=== PATIENT | female | born 1960 | race Caucasian/White ===

== ENCOUNTER → 2024-01-31 09:52 | Outpatient (REF) | payer MEDICARE, OTHER, SELFPAY | LOC: WDC 09:52 | PROVIDERS: ATTENDING PHYSICIAN Physician Assistant | DX: N95.9 Unspecified menopausal and perimenopausal disorder (principal); Z12.31 Encounter for screening mammogram for malignant neoplasm of breast | CPT/HCPCS: 77063; 77067; 77080 ==

== ENCOUNTER 2024-04-21 09:58 | Emergency (ER) | payer MEDICARE, OTHER, SELFPAY ==
[2024-04-21 10:17] VITALS: BP 160/86
--- NOTE | 2024-04-21 11:09 | ED.GENMED ---
History of Present Illness
General
Chief Complaint: Cold/Flu/URI Symptoms
Source: patient
Exam Limitations: none
Time Seen by Provider: 04/21/24 10:29
Nursing documentation reviewed up to this point in time: agreed with
History of Present Illness
History of Present Illness:
pt is a 63 y/o F with no sig pmh
here with 2-3 days of uri sxs
nasasl congestion, post nasal drip, sore throat and productive cough
no fever/chills
says naveen sneed she was feeling like she was having mucus aspirating or gtting stuck in her airway causing her some anxiety
doesn't think she had whooping sound
no known exposures to perturssis or covid
nochst pain, shortness of breath currenty
no fever
no home covid test
unvaccinated
Past History
Past History
ED Past Medical History: HTN
ED Past Surgical History: Appendectomy
Social History
Tobacco: Non-smoker
Alcohol: Occasional
Living: with family
Review of Systems
Review of Systems
Allergies reviewed?: Yes
All Other Systems: Not applicable
Phy Exam
Physical Exam
Physical Exam:
GENERAL: Alert , in no apparent distress
EYE: pupils equal and reactive
NECK: Supple
ENT: b/l TM s clear, pharynx mild erythematous but no tonsillar hypertrophy or exudates
CARDIAC: Regular rate and rhythm, no edema
LUNGS: Clear breath sounds bilaterally, no acute respiratory distress, no wheezes/rales/rhonchi, occ cough
ABDOMEN: Soft, without focal tenderness, no r/g, no cvat, normal bowel sounds
NEUROLOGICAL: Alert and oriented, no focal neuro deficits
SKIN: Warm and dry, skin intact.
MUSCULOSKELETAL: No edema, well perfused.
PSYCH: Normal and appropriate interaction.
Course
Orders/Labs/Results
Orders:
Orders
04/21/24 11:05
CR Chest - 2 Views Urgent
Comment:
Reason For Exam: cough
04/21/24 11:26
COVID-19 Antigen Urgent
Source: Nasal Swab
Influenza A+B Rapid Molecular Urgent
[facility]IM[facility] Source: Nasal Swab
Specimen Description:
Respiratory Syncytial Virus Urgent
[facility] Source: Nasal Swab
Specimen Description:
Date Specimen was Collected: 04/21/24
Time Specimen was Collected: 11:21
Abnormal Lab Results
04/21/24
11:26
SARS-CoV-2 Antigen Positive A
(Negative)
Vital Signs
Initial and Last Documented VS:
Initial Vital Signs
Temp Pulse Resp BP Pulse Ox
98.8 F 70 18 160/86 97
04/21/24 10:17 04/21/24 10:17 04/21/24 10:17 04/21/24 10:17 04/21/24 10:17
Last Documented Vital Signs
Temp Pulse Resp BP Pulse Ox
98.8 F 70 18 160/86 97
04/21/24 10:17 04/21/24 10:17 04/21/24 10:17 04/21/24 10:17 04/21/24 10:17
MDM/Problems Addressed
Differential Diagnosis Includes:
uri, viral infection, pna
MDM/Problems Addressed:
63 y/o F with no pmh
here with URI sxs x 2-3 days
had a prtty spastic cough last nght and felt like sh was having trouble breathing for a period of time, it scared her
it resolved
she is here to be checked out
no cp, sob
COVID-positive, clear lungs, x-ray is clear as well independently reviewed by me. RSV and flu are negative. Patient is not hypoxic, she is very well-appearing. She is unvaccinated. She has no medical problems to be concern for severe infection
thus antiviral therapy was not indicated
*Critical Care Note
Total Time (30-74mins, 75-104mins- exclusive of procedures): Not Applicable
ED Attending Note
-
Portions of this chart may have been created with voice recognition software.� Occasional wrong word or��sound alike� substitutions may have occurred due to the inherent limitations of voice recognition software.
Discharge Plan
Departure
Patient Disposition: Home (Routine Discharge)
Date of Disposition: 04/21/24
Time of Disposition: 12:09
Patient with high blood pressure during this ER visit?: No
Condition: Fair
Covid-19: Confirmed COVID-19
Discharge Problem:
COVID-19
Instructions: COVID-19 in adults - Discharge instructions
Prescriptions:
No Action
ondansetron 4 MG tablet,disintegrating
4 mg PO TIDPRN PRN (Reason: nausea/vomiting) Qty: 8 0RF
omeprazole magnesium [Prilosec OTC] 20 MG tablet,delayed release (DR/EC)
20 mg PO BID Qty: 30 0RF
famotidine 20 MG tablet
20 mg PO BID Qty: 28 0RF
Rx Instructions:
Take 20 mg twice a day for 14 days
ascorbic acid (vitamin C) [Vitamin C] 500 MG tablet
1,000 mg PO BID Qty: 56 0RF
Rx Instructions:
Take 1,000 mg twice a day for 14 days
aspirin 81 MG tablet,chewable
81 mg PO DAILY Qty: 14 0RF
Rx Instructions:
Take 81 mg daily for 14 days
zinc sulfate 220 MG capsule
220 mg PO DAILY Qty: 14 0RF
Rx Instructions:
Take 220 mg daily for 14 days
cholecalciferol (vitamin D3) 1,000 UNITS tablet
2,000 units PO DAILY Qty: 28 0RF
Rx Instructions:
Take 2,000 units daily for 14 days
melatonin 5 MG tablet
5 mg PO HS Qty: 14 0RF
Rx Instructions:
Take 5 mg daily at bedtime for 14 days
oxycodone 5 mg tablet
5 mg PO Q4H PRN (Reason: pain) Qty: 14 0RF
amoxicillin-pot clavulanate 875-125 mg tablet
1 tab PO BID Qty: 13 0RF
Referrals:
Rafael Tyler, [Family Provider] - Follow up in 5-7 days
Stand Alone Forms: Return to Work
Activity Restrictions/Additional Instructions:
You tested positive for coronavirus 19. Stay home for period of 5 days. You may return to public after 5 days as long as you are fever free. For cough you can use [id number] cough medications. For fever you can take Tylenol or ibuprofen.
Your chest x-ray was clear and there is no pneumonia. Return for significant shortness of breath, lethargy, confusion, or any concerns.
Interventions
Interventions:
*Risk Screen - Suicide Last Done: 04/21/24 10:17
*General Assessment Last Done: 04/21/24 10:17
*Neglect/Abuse Screening Last Done: 04/21/24 10:17
*ED COVID-19 Vaccine History Last Done: 04/21/24 10:17
*Nursing Disposition Last Done: 04/21/24 12:27
ED- Pulmonary Assessment Last Done: 04/21/24 11:25
Discharge Date and Time
Discharge Date/Time: 04/21/24 12:27
Print Language: BANGLADESHI
[2024-04-21 12:03] LABS: COVID-19 Antigen Positive (Negative)
== END 2024-04-21 12:27 | disposition home or self-care (01) ==
LOC: EMR 09:58
PROVIDERS: Physician Assistant; EMERGENCY PHYSICIAN Student in an Organized Health Care Education/Training Program; FAMILY PHYSICIAN Family Medicine
DX: U07.1 COVID-19 (principal); Z11.52 Encounter for screening for COVID-19; Z28.39 Other underimmunization status; I10 Essential (primary) hypertension; Z79.82 Long term (current) use of aspirin
CPT/HCPCS: 99283; 71046; 87502; 87807; 87811

== ENCOUNTER 2024-08-11 00:34 | Emergency (ER) | payer MEDICARE, OTHER, SELFPAY ==
[2024-08-11 03:32] VITALS: BP 202/92
[2024-08-11 04:00] VITALS: BP 178/118
--- NOTE | 2024-08-11 04:53 | ED.GENMED ---
History of Present Illness
General
Chief Complaint: Skin Surface Trauma
Source: patient
Exam Limitations: none
Time Seen by Provider: 08/11/24 04:39
History of Present Illness
History of Present Illness:
See MDM
Past History
Past History
ED Past Medical History: HTN
ED Past Surgical History: Appendectomy
Social History
Tobacco: Non-smoker
Alcohol: Occasional
Living: with family
Phy Exam
Physical Exam
Physical Exam:
See MDM
Course
Orders/Labs/Results
Orders:
Orders
08/11/24 00:45
Finger(s)/Thumb 2 View Rt [CR Finger(s)/thumb Min 2 Vw Rt] Urgent
Comment:
Reason For Exam: CONCERN FOR GLASS IN FINGER
Indicate Which Finger:: Ring Finger
Vital Signs
Initial and Last Documented VS:
Initial Vital Signs
Temp Pulse Resp Pulse Ox
97.8 F 74 18 98
08/11/24 00:41 08/11/24 00:41 08/11/24 00:41 08/11/24 00:41
Last Documented Vital Signs
Temp Pulse Resp BP Pulse Ox
97.8 F 81 19 178/118 95
08/11/24 00:41 08/11/24 03:36 08/11/24 03:36 08/11/24 04:00 08/11/24 04:15
Procedures
Laceration Closure
Right Middle Dorsal Fourth Finger:
Status of Wound: clean
Size of Wound in cm: 2
Description of Wound Edges: sharp
Preparation: cleaned with Betadine
Anesthesia: 1% Lidocaine
Revision/Debridement: routine- no revision
Wound exploration: explored to base- no FB
Type of Closure: single layer closure
Skin Closure Material: 4-0 nylon
Number of sutures: 2
MDM/Problems Addressed
Differential Diagnosis Includes:
HPI and MDM Narrative:
63-year-old female presenting with laceration to her right index finger. She is right-hand dominant. Patient broke a glass and she put it into the trash. She then pushed the trash down and cut her finger. Patient was more concerned that have a
piece of broken glass in her finger. She denies numbness or tingling. She states tetanus up-to-date. She is already on Augmentin for dental infection
After the laceration was numbed, it was probed and I did not palpate or appreciate any foreign body. X-ray shows no evidence of foreign body as well. The finger is neurovascularly intact and there is no clinical evidence of ligamentous injury
Physical exam
General: Well appearing and non-toxic
HEENT: protecting airway
Neck: appears supple
CV: No evidence of cyanosis
Resp: No accessory muscle use
Abd: Non-distended
Extremities: 2 cm laceration to dorsal aspect of the proximal right ring finger. Distal finger neurovascularly intact. Range of motion intact
Neuro: alert
Psych: Normal affect
Skin: Intact
Problems Addressed including Acute and Chronic Conditions affecting care:
1. Finger laceration
Acuity: acute
Prognosis: stable
Details: No evidence of foreign body on exam or x-ray. 2 sutures placed
Differential Diagnosis (but not limited to): Finger laceration, foreign body
Drug therapy (if applicable): OTC meds, please see d/c instruction regarding Rx drugs
Amount and/or Complexity of Data Reviewed
Clinical info obtained from: Patient
External data reviewed: N/A
Labs I independently reviewed (but not limited to): N/A
Radiology: X-ray independently reviewed: No foreign body noted on finger
Pulse Ox: not hypoxic
EKG independently reviewed: N/A
Fire Control Officer: N/A
Critical Care: N/A
Risk of Complication:
Social Determinants of health: Good social support
Discussed with other providers: N/A
Escalation of Care includes Admit/Obs: After being observed in the Emergency Department, pt stable for discharge.
Occasional wrong word or 'sound a like' substitutions may have occurred due to the inherent limitations of voice recognition software. Read the chart carefully and recognize, using context, where substitutions have occurred.
*Critical Care Note
Total Time (30-74mins, 75-104mins- exclusive of procedures): Not Applicable
ED Attending Note
-
Portions of this chart may have been created with voice recognition software.� Occasional wrong word or��sound alike� substitutions may have occurred due to the inherent limitations of voice recognition software.
Discharge Plan
Departure
Patient Disposition: Home (Routine Discharge)
Date of Disposition: 08/11/24
Time of Disposition: 04:53
Patient with high blood pressure during this ER visit?: Yes
Discharge Problem:
Finger laceration
Instructions: Laceration Repair With Stitches (DC), BLOOD PRESSURE
Prescriptions:
No Action
ondansetron 4 MG tablet,disintegrating
4 mg PO TIDPRN PRN (Reason: nausea/vomiting) Qty: 8 0RF
omeprazole magnesium [Prilosec OTC] 20 MG tablet,delayed release (DR/EC)
20 mg PO BID Qty: 30 0RF
famotidine 20 MG tablet
20 mg PO BID Qty: 28 0RF
Rx Instructions:
Take 20 mg twice a day for 14 days
ascorbic acid (vitamin C) [Vitamin C] 500 MG tablet
1,000 mg PO BID Qty: 56 0RF
Rx Instructions:
Take 1,000 mg twice a day for 14 days
aspirin 81 MG tablet,chewable
81 mg PO DAILY Qty: 14 0RF
Rx Instructions:
Take 81 mg daily for 14 days
zinc sulfate 220 MG capsule
220 mg PO DAILY Qty: 14 0RF
Rx Instructions:
Take 220 mg daily for 14 days
cholecalciferol (vitamin D3) 1,000 UNITS tablet
2,000 units PO DAILY Qty: 28 0RF
Rx Instructions:
Take 2,000 units daily for 14 days
melatonin 5 MG tablet
5 mg PO HS Qty: 14 0RF
Rx Instructions:
Take 5 mg daily at bedtime for 14 days
oxycodone 5 mg tablet
5 mg PO Q4H PRN (Reason: pain) Qty: 14 0RF
amoxicillin-pot clavulanate 875-125 mg tablet
1 tab PO BID Qty: 13 0RF
Activity Restrictions/Additional Instructions:
Keep wound clean and dry, change dressing if it becomes soiled or wet. Watch for signs of infection: fever over 100.5', increasing pain, red streaks around wound, swelling, drainage of pus, or bad smell. If any of these happen, return to ED
promptly. Return to ED or make an appointment with your doctor to have the 2 sutures removed in 7 days. All wounds may scar, however you may reduce the appearance of scarring by avoiding sun exposure to the scar and applying skin moisturizer with
spf protection to the scar once the wound is healed.
Please continue to take the Augmentin
Interventions
Interventions:
*Risk Screen - Suicide Last Done: 08/11/24 00:41
*General Assessment Last Done: 08/11/24 03:29
*Neglect/Abuse Screening Last Done: 08/11/24 00:41
ED- Fall Risk Assessment Last Done: 08/11/24 03:30
*ED COVID-19 Vaccine History Last Done: 08/11/24 03:29
ED-Skin Assessment Last Done: 08/11/24 03:30
Discharge Date and Time
Print Language: CYMRO
== END 2024-08-11 05:08 | disposition home or self-care (01) ==
LOC: EMR 00:34
PROVIDERS: EMERGENCY PHYSICIAN Student in an Organized Health Care Education/Training Program; FAMILY PHYSICIAN Family Medicine
DX: S61.214A Laceration without foreign body of right ring finger without damage to nail, initial encounter (principal); W25.XXXA Contact with sharp glass, initial encounter; I10 Essential (primary) hypertension
CPT/HCPCS: 99283; 12001; 73140

== ENCOUNTER → 2024-08-20 07:35 | Outpatient (REF) | payer MEDICARE, OTHER, SELFPAY | LOC: PAVMRI 07:35 | PROVIDERS: ATTENDING PHYSICIAN Otolaryngology; PRIMARYCARE PHYSICIAN Family Medicine | DX: H90.A21 Sensorineural hearing loss, unilateral, right ear, with restricted hearing on the contralateral side (principal) | CPT/HCPCS: 70553; A9575 ==

== ENCOUNTER 2024-09-25 06:34 | Outpatient (RCR) | payer MEDICARE, OTHER, SELFPAY | END 2024-09-25 23:59 | disposition home or self-care (01) | LOC: RPT 06:34 | PROVIDERS: ATTENDING PHYSICIAN Physician Assistant; FAMILY PHYSICIAN Family Medicine | DX: M77.01 Medial epicondylitis, right elbow (principal); M77.22 Periarthritis, left wrist; Z73.6 Limitation of activities due to disability | CPT/HCPCS: 97110; 97162 ==

== ENCOUNTER 2024-10-28 10:03 | Outpatient (RCR) | payer MEDICARE, OTHER, SELFPAY | END 2024-10-28 23:59 | disposition home or self-care (01) | LOC: RPT 10:03 | PROVIDERS: ATTENDING PHYSICIAN Physician Assistant; FAMILY PHYSICIAN Family Medicine | DX: M77.01 Medial epicondylitis, right elbow (principal); M77.22 Periarthritis, left wrist; Z73.6 Limitation of activities due to disability; M77.02 Medial epicondylitis, left elbow | CPT/HCPCS: 97010; 97110; 97140 ==

== ENCOUNTER 2025-01-17 03:53 | Inpatient (IN) | payer MEDICARE, OTHER, SELFPAY ==
[2025-01-17] VITALS (62 sets, daily range): BP systolic 106–245; BP diastolic 55–119; BMI 27.3
[2025-01-17] MEDS: MORPHINE SULFATE 4 MG IV ×2 (01:21→01:45)
[2025-01-17] MEDS: ZOFRAN 4 MG IV ×2 (01:21→01:45)
--- NOTE | 2025-01-17 01:24 | ED.GENMED ---
History of Present Illness
General
Chief Complaint: Headache
Source: patient and spouse
Time Seen by Provider: 01/17/25 01:15
History of Present Illness
History of Present Illness:
This patient is a 64-year-old female who states that she developed a left-sided headache at approximately 5 or 6 PM tonight that continues and is very severe. This is associated with nausea and vomiting. Just before coming here she felt numbness
and tingling in her right arm. That has since resolved. She denies double vision, change in vision, neck pain, chest pain, shortness of breath, change in speech, dizziness/change in balance, vertigo, abdominal pain, focal weakness, or other
complaints. Patient has never had a headache like this before. It is constant without exacerbating relieving factors.
Past History
Past History
ED Past Medical History: HTN
ED Past Surgical History: Appendectomy
Social History
Tobacco: Non-smoker
Alcohol: Occasional
Drug: None
Personal:
Living: with family
Phy Exam
Physical Exam
Physical Exam:
GENERAL: Alert , actively vomiting, appears to be uncomfortable
EYE: pupils equal and reactive, no photophobia, EOMI
NECK: Supple, no significant adenopathy.
ENT: o/p clr, mmm.
CARDIAC: Regular rate and rhythm .
LUNGS: Clear breath sounds bilaterally, no acute respiratory distress, no wheezes/rales/rhonchi
ABDOMEN: Soft, without focal tenderness, no r/g
NEUROLOGICAL: Alert and oriented, no focal neuro deficits
SKIN: Warm and dry, skin intact.
MUSCULOSKELETAL: No edema, well perfused.
PSYCH: Normal and appropriate interaction.
Course
Orders/Labs/Results
Orders:
Orders
01/17/25 01:18
CT BRAIN PERF STROKE ALERT Urgent
Comment:
Reason For Exam: l sided holland/
CT HEAD STROKE ALERT W/o Cont Urgent
Comment:
Reason For Exam: l sided h/a
CT HEAD/NECK ANG STROKE ALERT Urgent
Comment:
Reason For Exam: l sided holland/ r arm tingling
01/17/25 01:19
Complete Blood Count/With Diff Urgent
Comprehensive Metabolic Panel Urgent
01/17/25 01:20
Morphine Sulfate 4 mg .ROUTE .STK-MED ONE
Ondansetron Injectable [Zofran] 4 mg .ROUTE .STK-MED ONE
01/17/25 01:21
Morphine Sulfate 4 mg IV NOW STA
Ondansetron Injectable [Zofran] 4 mg IV NOW STA
01/17/25 01:43
Morphine Sulfate 4 mg IV NOW STA
Ondansetron Injectable [Zofran] 4 mg IV NOW STA
01/17/25 02:13
Electrocardiogram (*1) Urgent
Reason for Study: TIA/Stroke
EKG- Treatment ONCE
01/17/25 02:39
Troponin I Urgent
01/17/25 02:41
Prochlorperazine [Compazine] 10 mg IV NOW STA
01/17/25 02:43
Labetalol HCl [Trandate] 20 mg .ROUTE .STK-MED ONE
01/17/25 02:44
Labetalol HCl [Trandate] 10 mg IV NOW STA
01/17/25 02:55
Labetalol HCl [Trandate] 20 mg IV NOW STA
01/17/25 03:00
Urinalysis Reflex To Culture Urgent
Date Specimen was Collected: 01/17/25
Time Specimen was Collected: 03:00
Urine Microscopic Reflex Cult Urgent
Urine Culture Urgent
[facility] Source: U
Specimen Description:
Date Specimen was Collected: 01/17/25
Time Specimen was Collected: 03:00
Labetalol HCl [Trandate] 10 mg IV ONCE ONE
01/17/25 03:02
Nicardipine 40 mg/200 ml [Cardene] 40 mg in 200 ml IV NOW
Initial dose in mg/hr, then titrate:: 5
Titrate to keep:: BP < 180/105 mmHg
Titrate by mg/hr:: 2.5 mg/hr
Frequency of titrations (minutes):: 5-15 minutes
Maximum dose in mg/hr:: 15
Begin to taper infusion when:: Remained at goal for 2hrs
Taper by mg/hr:: 2.5 mg/hr
Frequency of taper (minutes) if patient maintains goal:: 15-30 minutes
Taper to off?: Yes
If infusion off & no longer maintaining goal:: Contact Provider
01/17/25 03:37
Admit/Transfer Patient As Directed
Co-Sign Provider:
Level of Care: Inpatient admission
Assign to:: ICU
Physician / Group: Mirza
Diagnosis: Hypertensive emergency
Reason for Hospitalization: Hypertensive emergency
Expected length of stay greater than two midnights?: Yes
ELOS- Estimated Length of Stay in days: 2
I certify the patient meets the requirements for IP care: Yes
Code Status As Directed
Resuscitation Status: Full Code
PRN Pain Medication Management As Directed
May give lesser potent ordered pain med per pt: Yes
preference::
Protocol:: Medication orders for pain may be administered in a
manner that supports deferring to patient preference
when the pt is:
- Requesting an ordered lesser potent pain medication.
Least to most potent pain medications are defined
as: acetaminophen < NSAID < tramadol < opioids
(morphine, oxycodone, hydromorphone).
- Requesting a lesser dose of the same medication IF
ORDERED.
- Requesting a less intrusive route of administration
if both routes are prescribed by the provider (PO <
IV).
01/17/25 04:28
Acetaminophen [Tylenol] 650 mg PO Q4HPRN PRN
Bisacodyl [Dulcolax] 10 mg RECTAL Q68CFPC PRN
Docusate W/Senna [Senokot-S] 1 tablet PO BIDPRN PRN
Ketorolac [Toradol] 10 mg IV Q6HPRN PRN
Nicardipine 40 mg/200 ml [Cardene] 40 mg in 200 ml IV PER PROTOCOL
Currently infusing. Continue current dose and titrate:: Yes
Titrate to keep:: BP < 180/105 mmHg
Titrate by mg/hr:: 2.5 mg/hr
Frequency of titrations (minutes):: 5-15 minutes
Maximum dose in mg/hr:: 15
Begin to taper infusion when:: Remained at goal for 2hrs
Taper by mg/hr:: 2.5 mg/hr
Frequency of taper (minutes) if patient maintains goal:: every 15-30 minutes
Taper to off?: Yes
If infusion off & no longer maintaining goal:: Contact Provider
Ondansetron Injectable [Zofran] 4 mg IV Q6HPRN PRN
Polyethylene Glycol Powder [Miralax] 17 grams PO DAILYPRN PRN
01/17/25 04:28
Activity As Directed
Activity Level: With Assistance
Neurological Checks As Directed
Frequency: q4h
Pneumatic Compression Sleeves As Directed
Type: Knee high
Vital Signs As Directed
Frequency: Per unit guidelines
Pulse Ox/spot Check [RESP] Routine
Quantity: 1
DX Deep Vein Thrombosis Video Routine
01/17/25 05:08
Complete Blood Count/No Diff IN AM
NT-proBNP IN AM
01/17/25 Breakfast
Sodium, 2 Gram
At Your Request: Full Participation
Does patient need a safe tray?: No
Abnormal Lab Results
01/17/25 01/17/25
01:19 03:00
RDW 14.7 H %
(11.5-14.5)
Glucose 131 H mg/dl
(70-99)
Calcium 10.3 H mg/dl
(8.4-10.2)
AST 52 H U/L
(14-36)
ALT 39 H U/L
(0-35)
Albumin 5.1 H g/dl
(3.5-5.0)
Urine RBC 3-6 A /HPF
(0-2)
Urine Bacteria (Reflex) Moderate A
(Negative)
Urine Albumin (Reflex) 2+ A
(Neg - Trace)
01/17/25 01:19
01/17/25 01:19
Vital Signs
Initial and Last Documented VS:
Initial Vital Signs
Temp Pulse Resp BP
98.1 F 90 26 205/119
01/17/25 01:09 01/17/25 01:09 01/17/25 01:09 01/17/25 01:09
Last Documented Vital Signs
Temp Pulse Resp BP Pulse Ox
98.3 F 80 22 120/75 96
01/17/25 11:00 01/17/25 12:00 01/17/25 12:00 01/17/25 12:00 01/17/25 12:00
*Critical Care Note
Total Time (30-74mins, 75-104mins- exclusive of procedures): 37
Update Note
Update Note:
Patient presents to the Emergency Department with __headache and vomiting
Number and Complexity of Problems Addressed at the Encounter
� Chronic conditions affecting care:
� Acute Exacerbation and/or Progression of Chronic Illness:
� Differential Diagnosis includes: But not limited to subarachnoid hemorrhage, hemorrhagic stroke, migraine, etc. etc.
Amount and/or Complexity of Data to be Reviewed and Analyzed
� I performed an independent evaluation of and my interpretation is:
EKG:read by me, nsr, lafb, no ischemia noted
CT: CTA/CTP/noncont ct. --vision verbal report nad
Xrays:
Laboratory Studies:generally unremkarable.
Other:
� Review of other/old records reveals:
� Clinical information was obtained by an independent historian: Spouse/domestic partner who is at bedside
� Prescriptions/Medications Considered but not given:
� Further testing considered but not performed:
Risk of Complications and/or Morbidity or Mortality of Patient Management
� Social determinants of health affecting care:
� Discussion with other providers (PCP, Hospitalists, Consultants, etc):
� Escalation of care including admission/observation vs risk of discharge considered: Patient's NIH is 0 at this time however given symptoms that were also associated with numbness tingling stroke alert was called and she is at
CAT scan at this time.
226am Pt with markedly elevated bp...neuro exam wnl, still with h/a and n but gradually improving. NIH remains 0. ecg unremkarable, no cp. No signs ed organ damage, however pt symptomatic with suspected hypertensive urgnecy. Will gradually lower
bp, lopressor times one ordered, monitor closely, admit. D/w hospitalsit Dr Mahan via tt.
243am Bp still elevated. Pt with nausea, no lnoger vomiting. Abd soft and nontender. Repeat dose of labetalol, add compazine.
3:04 AM will transition to a nicardipine drip with a goal systolic blood pressure approximately 175. This was discussed with the nurse. Hospitalist is aware of patient and will continue management. Patient is no longer vomiting and feels that the
nausea is improving as is the headache although not fully resolved. Again, no physical complaints besides headache which is improving. No back pain, abdominal pain, neck pain, etc. to suggest dissection, etc. etc.
ED Attending Note
-
Portions of this chart may have been created with voice recognition software.� Occasional wrong word or��sound alike� substitutions may have occurred due to the inherent limitations of voice recognition software.
Discharge Plan
Departure
Patient Disposition: Admit
Date of Disposition: 01/17/25
Time of Disposition: 02:28
Presentation/result/management discussed w/ accepting MD/DO: Hospitalist
Condition: Fair
Discharge Problem:
Headache
Interventions
Interventions:
*Risk Screen - Suicide Last Done: 01/17/25 01:09
*General Assessment Last Done: 01/17/25 01:09
*Neglect/Abuse Screening Last Done: 01/17/25 01:09
*ED- Fall Risk Assessment Last Done: 01/17/25 01:09
*ED COVID-19 Vaccine History Last Done: 01/17/25 01:09
*Nursing Disposition Last Done: 01/17/25 04:25
ED- Neurological Assessment Last Done: 01/17/25 01:52
Discharge Date and Time
Discharge Date/Time: 01/17/25 04:25
[2025-01-17 01:31] LABS: % Basophils 0.7 % (0-2); % Eosinophils 1.5 % (0-6); % Immature Granulocytes 0.3 % (0-0.5); % Lymphocytes 47.6 % (20.5-51.1); % Monocytes 7.6 % (1.7-9.3); % Neutrophils 42.3 % (42.2-75.2); Absolute Basophils 0.1 10^3/uL (0-0.2); Absolute Eosinophils 0.1 10^3/uL (0-0.7); Absolute Lymphocytes 3.3 10^3/uL (1.2-3.4); Absolute Monocytes 0.5 10^3/uL (0.1-0.6); Absolute Neutrophils 2.9 10^3/uL (1.4-6.5); Hematocrit 43.2 % (37.0-47.0); Hemoglobin 15.5 g/dL (12.0-16.0); Mean Corp Hgb Conc. 35.9 g/dL (33.0-37.0); Mean Corpuscular Hgb 30.5 pg (27.0-31.0); Mean Platelet Volume 9.8 fL (7.4-10.4); Nucleated Red Blood Cells % 0 %; Platelet Count 294 10^3/uL (130-400); Red Blood Cell Count 5.08 10^6/uL (4.20-5.40); Red Cell Dist. Width 14.7 % (11.5-14.5); White Blood Cell Count 6.9 10^3/uL (4.8-10.8)
[2025-01-17 01:56] LABS: ALT (SGPT) 39 U/L (0-35); AST (SGOT) 52 U/L (14-36); Albumin 5.1 g/dl (3.5-5.0); Alkaline Phosphatase 72 U/L (38-126); Blood Urea Nitrogen 16 mg/dl (7-17); Calcium 10.3 mg/dl (8.4-10.2); Carbon Dioxide 23 mmol/L (22-30); Chloride 107 mmol/L (98-107); Glucose 131 mg/dl (70-99); Potassium 4.1 mmol/L (3.5-5.1); Sodium 142 mmol/L (135-145); Total Bilirubin 0.8 mg/dl (0.2-1.3); Total Protein 8.2 g/dl (6.3-8.2); eGFR > 60.00
[2025-01-17] MEDS: TRANDATE 10 MG IV ×2 (02:11→02:46)
[2025-01-17] MEDS: COMPAZINE 10 MG IV (02:44)
[2025-01-17] MEDS: TRANDATE 20 MG IV (02:58)
[2025-01-17] MEDS: CARDENE 200 IV (03:08)
[2025-01-17 03:13] LABS: Urine Albumin 2+ (Neg - Trace); Urine Bilirubin Negative (Negative); Urine Color Straw; Urine Glucose Negative (Negative); Urine Ketone Negative (Negative); Urine Leukocyte Negative (Negative); Urine Nitrite Negative (Negative); Urine Occult Blood Negative (Negative); Urine Specific Gravity 1.015 (<1.030); Urine Urobilinogen Negative (Neg - 1+)
[2025-01-17 03:14] LABS: Urine Character Clear (Clear)
[2025-01-17 03:21] LABS: Troponin I < 0.012 ng/ml
--- NOTE | 2025-01-17 03:30 | HPS.HSE ---
Family Physician
-
Family Physician: Rafael Tyler DO
Chief Complaint
-
Headache
History of Present Illness
This is a 58-year-old female reports history of hypertension which is controlled with lifestyle modification presenting to the emergency department with acute episode of headache x 1 day.
Patient reported that headache began in the evening after work. She reported that it is a central and was initially tolerable. She took ibuprofen. She went to sleep and then she arose from sleep with a pounding severe headache. She denies any
double vision. She denies blurry vision. She denies any numbness tingling, weakness or any other focal logical deficits.
Patient reports that she is never had uncontrolled headache in the past and always had good blood pressures with diet control. She reports she has never been on antihypertensives.
She denies any tobacco use, she denies any chronic NSAID or acetaminophen use. Patient denies any recreational drug use. She denies any stimulants. She denies any environmental changes.
Patient denies any palpitations.
In the emergency department she was hypertensive to 240 systolic. Pulse was in the 80s. She was afebrile and she was satting 97% on room air.
ECG shows normal sinus rhythm with rate of 83 and left anterior fascicular block. No LVH.
CT of the head shows no acute interval changes. CT angio is negative for aneurysm, dissection. There is no intracranial bleed. There is no intracranial mass. There is no edema.
Medical History
Past Medical History
Past Medical History: Reports HTN
Past Surgical History: Reports None
Social History
Tobacco: Non-smoker
Alcohol: Occasional
Drug: None
Personal: Partner
Employment: Employed
Family History
Family History: Not pertinent
Allergies / Home Medications
Allergies reflects when Allergies were last updated in [employer].
Home Medications with original date entered in [employer]
Allergy/Medication List:
Allergies
Allergy/AdvReac Type Severity Reaction Status Date / Time
No Known Allergies Allergy Verified 01/17/25 01:08
Home Medications
No current home medication
Review of Systems
-
Constitutional: Reports No Symptoms
EENT: Reports No Symptoms
Respiratory: Reports No Symptoms
Cardiac: Reports No Symptoms
Abdomen/GI: Reports No Symptoms
: Reports No Symptoms
Musculoskeletal: Reports No Symptoms
Skin: Reports No Symptoms
Neurological: Reports Headache
Endocrine: Reports No Symptoms
Hematologic/Lymphatic: Reports No Symptoms
Psych: Reports No Symptoms
Physical Exam
Vital Signs
Vital Signs
Temp Pulse Resp BP Pulse Ox
98.1 F 83 15 188/82 95
01/17/25 01:09 01/17/25 03:15 01/17/25 03:15 01/17/25 03:15 01/17/25 03:10
Physical Exam
General: Well Developed, Well Nourished and No Apparent Distress
HEENT: NormoCephalic, Moist mucous membranes and Atraumatic
Respiratory: Clear
Cardiac: S1/S2 and Regular Rhythm; No Murmur or Rub
GI: Soft, Non Tender, Non Distended and Normal Bowel Sounds; No Organomegaly
Rectal: Deferred by Provider
Musculoskeletal: No Clubbing, No Cyanosis and No Edema
Skin: No Rash
Neuro: Nonfocal/grossly intact
Laboratory Results
-
01/17/25 01:19
01/17/25 01:19
Laboratory Results
Total Bilirubin 0.8 mg/dl (0.2-1.3) 01/17/25 01:19
AST 52 U/L (14-36) H 01/17/25 01:19
ALT 39 U/L (0-35) H 01/17/25 01:19
Alkaline Phosphatase 72 U/L (38-126) 01/17/25 01:19
Troponin I < 0.012 ng/ml 01/17/25 02:39
Data Reviewed
-
CT Scan: Report Reviewed by me
Medical Tests (Nuc Med, Echo, EKG etc): Image Personally Visualized and interpreted
Lab Data: Labs Reviewed by me
Old Records: Reviewed
Impression/Plan
-
IMPRESSION:
64-year-old female with acute onset of headache that woke her from sleep. She arrived in the emergency department with hypertensive emergency. CT of the head as well as CT angio of the head and neck was negative for any acute changes, no
dissection aneurysm or bleed noted. Patient blood pressure was brought down and distracted with improvement denies headache symptoms. She has no focal neurological deficits. ECG is nonischemic and troponin was negative. Labs did not show any
significant findings that would suggest chronic uncontrolled hypertension or secondary hypertension.
PLAN:
Hypertensive emergency
-Admit to ICU
-Nicardipine drip for now, goal blood pressure less than 180 systolic over the for 6 hours and then titrate down from there
-Neurochecks Q6
-Will hold off oral antihypertensives for now
-Labs do not suggest secondary hypertension from RAAS activation or primary aldosteronism. Given no prior history unlikely vascular hypertension such as coarctation. Cannot rule out feel
-Consider nephrology consult and possible w/u with iman, PRA, metanephrines/renal duplex u/s in a.m.
-UDS
-Consider nephrology consultation
DVT prophylaxis�SCDs for now pending BP control
CODE STATUS�full code
[2025-01-17 03:44] LABS: Urine Amorphous Seen; Urine Squamous Cell >30 /LPF (Few)
[2025-01-17 03:47] LABS: Urine Bacteria Moderate (Negative)
[2025-01-17 04:38] LABS: Glucose - Point of Care 136 mg/dl (70-99)
--- NOTE | 2025-01-17 05:22 | PTCARENOTE ---
Patient received in room 3364 at ~0418 via stretcher. The Patient transferred herself to ICU bed with minimal assistance. Patient received on Cardene gtt at 5 mg/hr (25 ml/hr). Plan of care for the remainder of the shift reviewed with the patient.
Sinus rhythm on the monitor. BP 183/82, 163/74. No edema. + pulses. Clear breath sounds. SpO2 at 94% on room air. Abdomen is round. No difficulty with swallowing. The patient voided 350 cc yellow urine with sediments. Bilateral knee pneumatic
sleeves placed. Labs drawn and sent. All needs are met at this time. Call lake an d personal are within Reach
[2025-01-17 05:29] LABS: Hematocrit 41.7 % (37.0-47.0); Hemoglobin 14.6 g/dL (12.0-16.0); Mean Corpuscular Hgb 30.2 pg (27.0-31.0); Mean Corpuscular Volume 86.3 fL (81.0-99.0); Mean Platelet Volume 9.9 fL (7.4-10.4); Platelet Count 251 10^3/uL (130-400); Red Blood Cell Count 4.83 10^6/uL (4.20-5.40); Red Cell Dist. Width 14.8 % (11.5-14.5); White Blood Cell Count 9.8 10^3/uL (4.8-10.8)
[2025-01-17 05:36] LABS: INR 0.95
[2025-01-17 05:37] LABS: APTT 22.7 Sec (23.4-35.0)
[2025-01-17 05:59] LABS: NT-proBNP 713 pg/ml
--- NOTE | 2025-01-17 06:56 | PTCARENOTE ---
0630: Cardene gtt placed on hold. BP 138/66
[2025-01-17 07:07] LABS: Blood Urea Nitrogen 13 mg/dl (7-17); Calcium 9.8 mg/dl (8.4-10.2); Carbon Dioxide 25 mmol/L (22-30); Chloride 104 mmol/L (98-107); Estimated Creatinine Clearance 74 ml/min; Glucose 131 mg/dl (70-99); Magnesium 1.4 mg/dl (1.6-2.3); Phosphorus 4.1 mg/dl (2.5-4.5); Potassium 4.4 mmol/L (3.5-5.1); Sodium 141 mmol/L (135-145); eGFR > 60.00
--- NOTE | 2025-01-17 08:34 | PTCARENOTE ---
Complete assessment done, Pt pleasant, very tired, oriented x3, no headache at this time. HR SR, BP 127/60 presently. Cardene drip on hold. Lobes clear bilat on R/A. Pt 'not hungry', encouraged to call for breakfast, house phone and menu at her
side. Pt wanting to go back to sleep for a little, since she didn't get much sleep overnight. Pt made comfotable, Call lake at pt's side.
--- NOTE | 2025-01-17 10:08 | W.PN.HOSP.TC ---
Today's Communication/Plan
-
HTN meds
Assessment / Plan
Assessment / Plan
Physical exam:
General: Well Developed, Well Nourished and No Apparent Distress
HEENT: Normocephalic, Atraumatic and Moist Mucous Membranes
Respiratory: Clear to Auscultation; Negative Wheezes, Rales or Rhonchi
Cardiac: Regular Rhythm and S1/S2
GI: Soft, Nontender and Nondistended
Musculoskeletal: No Clubbing, No Cyanosis and No Edema
Neuro: Awake, Alert and Oriented, no neurodeficits
Psych: Calm
A/P:
Hypertensive urgency (ruled out hypertensive emergency):
Off Cardene drip
Start losartan
May use HCTZ if needed
Obtain echocardiogram
Can transfer out of ICU
I do not see any need for secondary hypertension workup
Monitor for 24 hours and if blood pressure stable can be discharged tomorrow
DVT prophylaxis�SCDs
CODE STATUS�full code
Anticipated Discharge: Within 24 hours
Subjective/Interval History
-
Date of Service: January 17, 2025
Patient feels better today. No headache. No chest pain or shortness of breath
Objective Data
-
Labs:
Laboratory Results
01/17/25 01/17/25 01/17/25
01:19 05:07 05:08
WBC 6.9 9.8
Hgb 15.5 14.6
Hct 43.2 41.7
Plt Count 294 251
PT 13.0
INR 0.95
APTT 22.7 L
Sodium 142 Cancelled
Potassium 4.1 Cancelled
Chloride 107 Cancelled
Carbon Dioxide 23 Cancelled
BUN 16 Cancelled
Creatinine 0.8 Cancelled
Glucose 131 H Cancelled
Calcium 10.3 H Cancelled
Total Bilirubin 0.8
AST 52 H
ALT 39 H
Alkaline Phosphatase 72
01/17/25
06:24
WBC
Hgb
Hct
Plt Count
PT
INR
APTT
Sodium 141
Potassium 4.4
Chloride 104
Carbon Dioxide 25
BUN 13
Creatinine 0.7
Glucose 131 H
Calcium 9.8
Total Bilirubin
AST
ALT
Alkaline Phosphatase
Vital Signs:
Vital Signs
Temp Pulse Resp BP Pulse Ox
98.6 F 72 15 136/61 93
01/17/25 07:11 01/17/25 07:30 01/17/25 07:30 01/17/25 07:30 01/17/25 07:45
I&O
01/16/25 01/17/25 01/18/25
06:59 06:59 06:59
Intake Total 75 / 75 100 / 100
Output Total 350 / 350
Balance -275 / -275 100 / 100
--- NOTE | 2025-01-17 10:56 | CON.INTV ---
Consultation
Consultation Request
Date/Time Consultation Requested: 01/17/2025
Date/Time Consultation Performed: 01/17/2025
Requesting Provider: Dr. Blue
Performing Provider: Dr. Rocky Barrett
Reason for Consultation: Hypertensive urgency
Medical History
-
History of Present Illness:
58-year-old woman with history of hypertension initially controlled with lifestyle in the past she has been prescribed medications but she never took them. Came to the hospital with acute episode of severe headache for 1 day.
Headache started while she was at work. She took Motrin without success.
Denies, nausea, vomiting, blurry vision. Denies weakness.
Denies back pain or abdominal pain.
Denies dark urine.
She is a never smoker.
Denies any illegal drug use
Does not drink alcohol in excess.
She was found to be severely hypertensive 240/80. Not hypoxemic
EKG nonischemic.
CT of the head without any abnormalities
Transferred to the critical care unit for IV antihypertensive
Past Medical History
Past Medical History: Other (See assessment and plan)
Social History
Tobacco: Non-smoker (Never)
Alcohol: Occasional
Drug: None
Personal: Partner
Employment: Employed
Family History
Family History: Reviewed & Not Pertinent
Allergies / Home Medications
Allergies
Allergy/AdvReac Type Severity Reaction Status Date / Time
No Known Allergies Allergy Verified 01/17/25 01:08
Home Medications
�Medication �Instructions �Recorded �Confirmed �Last Taken �Type
ondansetron 4 mg disintegrating 4 mg PO TIDPRN PRN nausea/vomiting 07/06/20 Unknown Rx
tablet #8 tabs
omeprazole magnesium 20 mg 20 mg PO BID ##30 02/12/21 Unknown Rx
tablet,delayed release (Prilosec
OTC)
ascorbic acid (vitamin C) 500 mg 1,000 mg (2 x 500 mg) PO BID #56 06/10/21 Unknown Rx
tablet (Vitamin C) tabs
aspirin 81 mg chewable tablet 81 mg PO DAILY #14 tabs 06/10/21 Unknown Rx
cholecalciferol (vitamin D3) 25 2,000 units PO DAILY #28 tabs 06/10/21 Unknown Rx
mcg (1,000 unit) tablet
famotidine 20 mg tablet 20 mg PO BID #28 tabs 06/10/21 Unknown Rx
melatonin 5 mg tablet 5 mg PO HS #14 tabs 06/10/21 Unknown Rx
zinc sulfate 50 mg zinc (220 mg) 220 mg (4.4 x 50 mg zinc (220 mg)) 06/10/21 Unknown Rx
capsule PO DAILY #14 caps
oxycodone 5 mg tablet 5 mg PO Q4H PRN pain #14 tabs 04/13/22 Unknown Rx
amoxicillin 875 mg-potassium 1 tab PO BID #13 tabs 06/05/23 Unknown Rx
clavulanate 125 mg tablet
Review of Systems
-
History Source: Patient
All other systems: Negative unless noted
Vitals / Labs / Diagnostic Testing
Vital Signs
Temp Pulse Resp BP Pulse Ox
98.6 F 72 15 136/61 93
01/17/25 07:11 01/17/25 07:30 01/17/25 07:30 01/17/25 07:30 01/17/25 07:45
Lab Data
01/17/25 05:08
01/17/25 06:24
Laboratory Results
01/17/25
05:07
PT 13.0
INR 0.95
APTT 22.7 L
Diagnostic Testing:
Physical Exam
-
HEENT: Normocephalic
Cardiovascular: S1/S2
Respiratory: Non-Labored Respirations
GI: Soft and Non Distended
Neurology: Awake, Oriented, AO x 3 and No Motor Deficits
Skin: Warm
General: Comfortable
Assessment
-
64-year-old woman admitted to the hospital with severe headache. Found to be significantly hypertensive. Admitted to the critical care unit for IV antihypertensive.
Hypertensive urgency
Normal CT head/CT cervical spine also negative.
Chest x-ray: Without widened mediastinum or pulmonary edema
Normal renal function
No evidence for anemia
Normal proBNP/negative cardiac enzymes
History of hypertension-diet controlled
-
Conditions present prior admission:
History of migraines
GERD
Plan/recommendations.
Clinically improved since overnight.
Nicardipine drip has been discontinued
At this point no evidence for target organ damage.
Headache mostly resolved
Now mostly asymptomatic.
-
Start losartan-defer titration to primary team.
Discussed with Dr. Shaffer.
-
Increase activity as able
Advance diet
-
Patient denies history of snoring or symptoms suggestive of obstructive sleep apnea
-
DVT prophylaxis with SCDs for now.
-
Transfer to telemetry. Critical care team will sign off.
[2025-01-17] MEDS: COZAAR 25 MG PO ×2 (11:59→17:38)
--- NOTE | 2025-01-17 12:10 | PTCARENOTE ---
Pt seen by Dr Callahan and ICU food analyst. BP's reviewed, pt started on losartan 25 mg po today, Pt's BP presently 120/75. Pt to bathroom, stable on feet, washed self and brushed teeth, now in chair eating lunch. Pt cleared to go to a tele room when
available.
--- NOTE | 2025-01-17 16:32 | PTCARENOTE ---
Pt transferred via wheelchair to rm [id number]. All belongings and tele monitor with pt. Report given to Brigette CROFT, who will be caring for pt in new area.
[2025-01-17] MEDS: ORETIC 12.5 MG PO (17:38)
--- NOTE | 2025-01-17 19:24 | PTCARENOTE ---
Rec'd pt from ICU, blood pressure 144/67 heart rate 72. Of concern to pt, reached out to Windy Shaffer MD, placed orders and medication provided. Will reassess with 1900 vital signs. Pt call lake placed within reach, pt instructed to ring for assistance,
verbalized understanding. Pt placed on tele running nsr. Pt skin is intact. will cont to monitor.
[2025-01-17] MEDS: MAG-TAB SR 84 MG PO (20:19)
[2025-01-18 03:40] VITALS: BP 152/74
[2025-01-18 07:08] VITALS: BP 134/65
[2025-01-18] MEDS: COZAAR 50 MG PO (08:35)
[2025-01-18] MEDS: ORETIC 12.5 MG PO (08:35)
[2025-01-18] MEDS: MAG-TAB SR 84 MG PO (08:36)
[2025-01-18 09:40] LABS: Blood Urea Nitrogen 18 mg/dl (7-17); Calcium 9.7 mg/dl (8.4-10.2); Carbon Dioxide 26 mmol/L (22-30); Chloride 103 mmol/L (98-107); Estimated Creatinine Clearance 58 ml/min; Glucose 108 mg/dl (70-99); Sodium 138 mmol/L (135-145); eGFR > 60.00
[2025-01-18 11:36] VITALS: BP 132/57
--- NOTE | 2025-01-18 11:37 | W.PN.HOSP.TC ---
Today's Communication/Plan
-
Discharge planning today
Assessment / Plan
Assessment / Plan
Physical exam:
General: Well Developed, Well Nourished and No Apparent Distress
HEENT: Normocephalic, Atraumatic and Moist Mucous Membranes
Respiratory: Clear to Auscultation; Negative Wheezes, Rales or Rhonchi
Cardiac: Regular Rhythm and S1/S2
GI: Soft, Nontender and Nondistended
Musculoskeletal: No Clubbing, No Cyanosis and No Edema
Neuro: Awake, Alert and Oriented, no neurodeficits
Psych: Calm
A/P:
Hypertensive urgency (ruled out hypertensive emergency):
Resolved
Off Cardene drip
Echocardiogram reviewed
Losartan 50 mg and HCTZ 12.5 mg
Discharge planning today
DVT prophylaxis�SCDs
CODE STATUS�full code
Anticipated Discharge: Today
Subjective/Interval History
-
Date of Service: January 18, 2025
No new complaints. Blood pressure stable
Objective Data
-
Labs:
Laboratory Results
01/18/25
08:34
Sodium 138
Potassium 4.0
Chloride 103
Carbon Dioxide 26
BUN 18 H
Creatinine 0.9
Glucose 108 H
Calcium 9.7
Vital Signs:
Vital Signs
Temp Pulse Resp BP Pulse Ox
97.6 F 63 16 132/57 94
01/18/25 11:36 01/18/25 11:36 01/18/25 11:36 01/18/25 11:36 01/18/25 11:36
I&O
01/17/25 01/18/25 01/19/25
06:59 06:59 06:59
Intake Total 75 / 75 1100 / 1100
Output Total 350 / 350 700 / 700
Balance -275 / -275 400 / 400
--- NOTE | 2025-01-18 12:10 | PTCARENOTE ---
Assumed care of pt from previous nurse. pt is on tele running nsr. pt blood pressure 132/57 heart rate 63. call lake is within reach, pt denies pain. will continue to monitor.
--- NOTE | 2025-01-18 12:55 | CM ---
Patient for d/c today. Seen patient bedside, initial assessment completed. Patient is a 58-year-old female reports history of hypertension which is controlled with lifestyle modification presenting to the emergency department with acute episode of
headache.
Patient resides alone primarily in a 2STH, no steps. Patient's boyfriend stays with her sometimes. Independent w/ amb and ADLs, no DME. Denies SNF/HC hx. Patient drives. OP therapy at [facility] center in the past.
Address, point of contact and insurance verified
PCP: Rafael Tyler
Pharmacy: [facility] [place]
IMM verbally reviewed, copy provided, copy on chart
Plan: Home today, no needs
--- NOTE | 2025-01-18 13:09 | PTCARENOTE ---
Pt discharged to home, paperwork reviewed, signed, pt copy provided. Pt iv and tele removed. pt left with via wheelchair to his vehicle.
--- NOTE | 2025-01-18 13:59 | W.DCSUMMARY ---
Discharge Summary
Discharge Data
Date of Admission: 01/17/25
Date of Discharge: 01/18/25
-
Pending Results: No
Hospital Course
Patient 64-year-old female with history of hypertension came into the hospital with hypertensive urgency. Patient was trying to achieve blood pressure control with lifestyle changes modification but came in with significant headache and significant
elevated blood pressure and she had to be started on Cardene drip to have blood pressure under control. Subsequently she was switched to oral losartan and hydrochlorothiazide and that has achieved better control of her blood pressure. She had an
echocardiogram with EF 70% and moderate concentric LVH and stage I diastolic dysfunction. Patient is doing well and she feels back to her baseline. She will be discharged in stable condition today.
Discharge Plan
-
Patient Disposition: Home (Routine Discharge)
Discharge Diagnosis/Procedures: Hypertensive urgency
Condition: Fair
Diet: Low Cholesterol and Low Sodium
Activity: As tolerated
Blood Work: Please PCP to order CBC, BMP within 1 week
Referrals:
Rafael Tyler DO [Family Provider, Family Practice] - in less than 1 week
Prescriptions:
New
hydrochlorothiazide 12.5 mg Tablet
12.5 mg PO DAILY Qty: 30 0RF
losartan 50 mg Tablet
50 mg PO DAILY Qty: 30 0RF
Continued
omeprazole magnesium [Prilosec OTC] 20 MG tablet,delayed release (DR/EC)
20 mg PO BID Qty: 30 0RF
levothyroxine 25 mcg Tablet
25 mcg PO DAILY
Discontinued
losartan 25 mg Tablet
25 mg PO DAILY
diclofenac sodium 75 mg Tablet,Delayed Release (Dr/Ec)
75 mg PO BID PRN (Reason: pain)
Discharge Orders:
Discharge Patient (As Directed); Ordered 01/18/25
Ordered By: Surinder Shaffer
Discharge Date and Time
Discharge Date/Time: 01/18/25 13:23
Print Language: PORTUGUESE
== END 2025-01-18 13:23 | disposition home or self-care (01) | DRG 305 ==
LOC: 4 WEST ACU 03:53
PROVIDERS: Nurse Practitioner Primary Care; ADMITTING PHYSICIAN Internal Medicine; ATTENDING PHYSICIAN Hospitalist; EMERGENCY PHYSICIAN Emergency Medicine; FAMILY PHYSICIAN Family Medicine; OTHER PHYSICIAN Internal Medicine Critical Care Medicine
DX: I16.0 Hypertensive urgency (principal); I10 Essential (primary) hypertension; I44.4 Left anterior fascicular block; K21.9 Gastro-esophageal reflux disease without esophagitis; Z79.890 Hormone replacement therapy
CPT/HCPCS: 0042T; 70450; 70496; 70498; 71045; 80048; 80053; 81003; 81015; 82962; 83735; 83880; 84100; 84484; 85025; 85027; 85610; 85730; 87086; 93005; 93306; 96374; 96375; 96376; 99291; Q9967

== ENCOUNTER → 2025-02-26 14:06 | Outpatient (REF) | payer MEDICARE, OTHER, SELFPAY | LOC: WDC 14:06 | PROVIDERS: ATTENDING PHYSICIAN Family Medicine | DX: Z12.31 Encounter for screening mammogram for malignant neoplasm of breast (principal) | CPT/HCPCS: 77063; 77067 ==

== ENCOUNTER → 2025-02-27 09:49 | Outpatient (REF) | payer MEDICARE, OTHER, SELFPAY | LOC: RAD 09:49 | PROVIDERS: ATTENDING PHYSICIAN Family Medicine | DX: M25.551 Pain in right hip (principal); M25.552 Pain in left hip | CPT/HCPCS: 73523 ==

== ENCOUNTER 2025-04-26 14:47 | Emergency (ER) | payer MEDICARE, OTHER, SELFPAY ==
[2025-04-26 14:49] VITALS: BP 174/74
--- NOTE | 2025-04-26 15:42 | ED.MUSCINJ ---
HPI-Injury
General
Chief Complaint: Musculo-Skeletal Complaint
Source: patient
Exam Limitations: none
Time Seen by Provider: 04/26/25 14:56
Nursing documentation reviewed up to this point in time: agreed with
History of Present Illness-Injury
Initial Injury comments:
64-year-old female with history of HTN, hypothyroid presents with left foot pain. Pain started the evening after she was cleaning out a storage area and walking for long periods on uneven surfaces. The pain has gradually gotten worse where now it
is significant even at rest. The pain is on the top of her foot and wraps around the ankle.
Past History
Past History
ED Past Medical History: HTN and Hypothyroidism
ED Past Surgical History: Appendectomy
Social History
Tobacco: Non-smoker
Alcohol: Occasional
Drug: None
Personal:
Living: with family
Employment: Not employed
Review of Systems
Review of Systems
Allergies reviewed?: Yes
All Other Systems: ROS reviewed and negative except as documented in HPI and ROS
Phy Exam
Physical Exam
Physical Exam:
PHYSICAL EXAMINATION:
General: no apparent distress, not acutely ill
Neuro: alert and oriented.
Psychiatric: well kept. interactive and cooperative
Musculoskeletal: Right foot is without any notable swelling. It is most tender to palpate along the lateral dorsum, full range of motion. Distal neurovascular intact. No redness.
Skin: Warm, pink.
Injury Course
Orders/Labs/Results
Orders:
Orders
04/26/25 14:52
Foot, Left 3 View [CR Foot - Left Min 3 Views] Urgent
Comment: cleaning storage area
Reason For Exam: left foot pain. may have twisted while
04/26/25 15:40
Gabe Wrap Left-Treatment ONCE
Cast Shoe Left-Treatment ONCE
MDM/Problems Addressed
Differential Diagnosis Includes:
Fracture versus sprain versus tendinitis
MDM/Problems Addressed:
64-year-old female with history of HTN, hypothyroid presents with left foot pain. Pain started the evening after she was cleaning out a storage area and walking for long periods on uneven surfaces. The pain has gradually gotten worse where now it
is significant even at rest. The pain is on the top of her foot and wraps around the ankle.
X-ray left foot initially read by this examiner: No acute bony abnormality noted.
Gabe wrap and fracture shoe applied, patient has her own crutches. She will see her orthopedic doctor at [facility] if needed
Ibuprofen has not been helping much. Rx for short burst of prednisone sent to her pharmacy
*Pulse Oximetry
SaO2: 98
Oxygen Mode of Delivery: Room air
Patient hypoxic: not evaluated
*Critical Care Note
Total Time (30-74mins, 75-104mins- exclusive of procedures): Not Applicable
ED Attending Note
-
Portions of this chart may have been created with voice recognition software.� Occasional wrong word or��sound alike� substitutions may have occurred due to the inherent limitations of voice recognition software.
Discharge Plan
Departure
Patient Disposition: Home (Routine Discharge)
Date of Disposition: 04/26/25
Time of Disposition: 15:45
Patient with high blood pressure during this ER visit?: No
Condition: Good
Discharge Problem:
Soft tissue injury of left foot
Instructions: Sprain (DC), Using Cold for Pain
Prescriptions:
New
prednisone 20 mg tablet
40 mg PO DAILY Qty: 6 0RF
No Action
omeprazole magnesium [Prilosec OTC] 20 MG tablet,delayed release (DR/EC)
20 mg PO BID Qty: 30 0RF
levothyroxine 25 mcg Tablet
25 mcg PO DAILY
hydrochlorothiazide 12.5 mg Tablet
12.5 mg PO DAILY Qty: 30 0RF
losartan 50 mg Tablet
50 mg PO DAILY Qty: 30 0RF
Referrals:
Rafael Tyler, [Family Provider, Family Practice]
Kemar Quintanilla MD [Active, Orthopedics] - As needed
Activity Restrictions/Additional Instructions:
As we discussed, your x-ray shows no bony abnormality. You most likely sprained the soft tissues of the foot or you may have tendinitis of the foot.
May continue ibuprofen 600 mg, with food, every 6 hours as needed for pain
I sent a prescription to your pharmacy for prednisone to take 40 mg daily for the next 3 days for inflammation
Wear the Gabe wrap and cast shoe as needed for comfort and support
See the orthopedic doctor if you are not a lot better in 1 week or not 100% better in 3 weeks.
Interventions
Interventions:
*Risk Screen - Suicide Last Done: 04/26/25 14:49
*General Assessment Last Done: 04/26/25 15:09
*Neglect/Abuse Screening Last Done: 04/26/25 14:49
*ED- Fall Risk Assessment Last Done: 04/26/25 15:09
*ED COVID-19 Vaccine History Last Done: 04/26/25 15:09
*Nursing Disposition Last Done: 04/26/25 15:56
ED-Musculoskeletal Assessment Last Done: 04/26/25 15:09
Discharge Date and Time
Discharge Date/Time: 04/26/25 15:57
Print Language: CHINESE
[2025-04-26 15:54] VITALS: BP 133/58
== END 2025-04-26 15:57 | disposition home or self-care (01) ==
LOC: EMR 14:47
PROVIDERS: EMERGENCY PHYSICIAN Emergency Medicine; FAMILY PHYSICIAN Family Medicine
DX: S99.922A Unspecified injury of left foot, initial encounter (principal); X58.XXXA Exposure to other specified factors, initial encounter; Y93.E9 Activity, other interior property and clothing maintenance; I10 Essential (primary) hypertension; E03.9 Hypothyroidism, unspecified
CPT/HCPCS: 99283; 73630

== ENCOUNTER 2025-04-28 09:06 | Emergency (ER) | payer MEDICARE, OTHER, SELFPAY ==
[2025-04-28 09:13] VITALS: BP 148/78
[2025-04-28] MEDS: PERCOCET 5/325 1 TABLET PO (11:04)
[2025-04-28 11:21] LABS: Hematocrit 38.5 % (37.0-47.0); Hemoglobin 13.3 g/dL (12.0-16.0); Mean Corp Hgb Conc. 34.5 g/dL (33.0-37.0); Mean Corpuscular Volume 93.7 fL (81.0-99.0); Nucleated Red Blood Cells % 0 %; Platelet Count 235 10^3/uL (130-400); Red Cell Dist. Width 13.1 % (11.5-14.5)
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
[2025-04-28 11:42] LABS: ALT (SGPT) 22 U/L (0-35); AST (SGOT) 19 U/L (14-36); Albumin 4.4 g/dl (3.5-5.0); Alkaline Phosphatase 44 U/L (38-126); Blood Urea Nitrogen 23 mg/dl (7-17); Calcium 10.1 mg/dl (8.4-10.2); Carbon Dioxide 26 mmol/L (22-30); Chloride 108 mmol/L (98-107); Glucose 123 mg/dl (70-99); Potassium 4.5 mmol/L (3.5-5.1); Sodium 139 mmol/L (135-145); Total Protein 7.0 g/dl (6.3-8.2); Uric Acid 7.7 mg/dl (2.5-6.2); eGFR > 60.00
[2025-04-28 12:00] VITALS: BP 135/75
[2025-04-28] MEDS: DELTASONE 60 MG PO (12:34)
== END 2025-04-28 13:04 | disposition home or self-care (01) ==
LOC: EMR 09:06
PROVIDERS: EMERGENCY PHYSICIAN Student in an Organized Health Care Education/Training Program; FAMILY PHYSICIAN Family Medicine
DX: M10.9 Gout, unspecified (principal); I10 Essential (primary) hypertension; E78.00 Pure hypercholesterolemia, unspecified; E03.9 Hypothyroidism, unspecified; Z90.49 Acquired absence of other specified parts of digestive tract
CPT/HCPCS: 99283; 80053; 84550; 85025

== ENCOUNTER → 2025-05-02 18:50 | Outpatient (REF) | payer MEDICARE, OTHER, SELFPAY | LOC: PAVMRI 18:50 | PROVIDERS: ATTENDING PHYSICIAN Student in an Organized Health Care Education/Training Program | DX: M79.672 Pain in left foot (principal) | CPT/HCPCS: 73718 ==

== ENCOUNTER 2025-05-29 09:30 | Emergency (ER) | payer MEDICARE, OTHER, SELFPAY ==
[2025-05-29 09:38] VITALS: BP 127/75
[2025-05-29 10:14] VITALS: BMI 27.1
--- NOTE | 2025-05-29 10:42 | ED.SKININJ ---
HPI-Injury
General
Chief Complaint: Skin Surface Trauma
Source: patient
Time Seen by Provider: 05/29/25 10:08
History of Present Illness-Injury
Initial Injury comments:
64-year-old female presents with foreign body in left foot. She stepped on a piece of broken wine glass 2 days ago and has been unable to get the glass out. She went to an urgent care yesterday who tried and was unable to. Vaccines up-to-date.
No other complaints at this time
Past History
Past History
ED Past Medical History: HTN and Hypothyroidism
ED Past Surgical History: Appendectomy
Social History
Tobacco: Non-smoker
Alcohol: Occasional
Drug: None
Personal:
Living: with family
Employment: Not employed
Phy Exam
Physical Exam
Physical Exam:
General: Well-appearing female no acute distress
Skin: Small puncture wound plantar surface left heel slightly tender no visible foreign body on the surface of the skin. No surrounding erythema.
Course
Orders/Labs/Results
Orders:
Orders
05/29/25 09:40
CR Foot - Left Min 3 Views Urgent
Comment:
Reason For Exam: glass stuck in L heel
Vital Signs
Initial and Last Documented VS:
Initial Vital Signs
Temp Pulse Resp BP Pulse Ox
97.7 F 66 18 127/75 98
05/29/25 09:38 05/29/25 09:38 05/29/25 09:38 05/29/25 09:38 05/29/25 09:38
Last Documented Vital Signs
Temp Pulse Resp BP Pulse Ox
97.7 F 66 18 127/75 98
05/29/25 09:38 05/29/25 09:38 05/29/25 09:38 05/29/25 09:38 05/29/25 09:38
MDM/Problems Addressed
Differential Diagnosis Includes:
Patient was sent for x-rays and the x-rays do confirm a small radiopaque foreign body about a centimeter in from the skin surface at the plantar surface of the don. This correlates clinically .
Discussion was had regarding treatment options. She was agreeable to trying to remove the foreign body. The skin was wiped with alcohol and anesthetized with 1% lidocaine with epinephrine. There was a small incision made using 11 blade scalpel.
Blunt dissection was performed with needle armored truck driver and the foreign body was palpated and visualized and removed in its entirety. This was then irrigated with saline and closed with 4-0 Prolene suture. Stable for discharge
*Pulse Oximetry
SaO2: 98
Oxygen Mode of Delivery: Room air
Patient hypoxic: no
*Critical Care Note
Total Time (30-74mins, 75-104mins- exclusive of procedures): Not Applicable
ED Attending Note
-
Portions of this chart may have been created with voice recognition software.� Occasional wrong word or��sound alike� substitutions may have occurred due to the inherent limitations of voice recognition software.
Discharge Plan
Departure
Patient Disposition: Home (Routine Discharge)
Date of Disposition: 05/29/25
Time of Disposition: 10:57
Patient with high blood pressure during this ER visit?: No
Discharge Problem:
Foreign body (FB) in soft tissue
Prescriptions:
No Action
omeprazole magnesium [Prilosec OTC] 20 MG tablet,delayed release (DR/EC)
20 mg PO BID Qty: 30 0RF
levothyroxine 25 mcg Tablet
25 mcg PO DAILY
hydrochlorothiazide 12.5 mg Tablet
12.5 mg PO DAILY Qty: 30 0RF
losartan 50 mg Tablet
50 mg PO DAILY Qty: 30 0RF
prednisone 20 mg tablet
40 mg PO DAILY Qty: 6 0RF
prednisone 20 mg tablet
40 mg PO DAILY 7 Days Qty: 14 0RF
ibuprofen 600 mg tablet
600 mg PO Q8H PRN (Reason: Pain) Qty: 20 0RF
oxycodone-acetaminophen [Percocet] 5-325 mg tablet
1 tab PO Q8H PRN (Reason: Pain) Qty: 10 0RF
Activity Restrictions/Additional Instructions:
Your suture needs to be removed in about 10 days. Return if needed otherwise
Interventions
Interventions:
*Risk Screen - Suicide Last Done: 05/29/25 09:38
*General Assessment Last Done: 05/29/25 09:38
*Neglect/Abuse Screening Last Done: 05/29/25 10:15
*ED- Fall Risk Assessment Last Done: 05/29/25 10:15
*ED COVID-19 Vaccine History Last Done: 05/29/25 09:38
*ED Influenza Vaccine History Last Done: 05/29/25 09:38
ED-Skin Assessment Last Done: 05/29/25 10:16
Discharge Date and Time
Print Language: LAO
== END 2025-05-29 11:03 | disposition home or self-care (01) ==
LOC: EMR 09:30
PROVIDERS: EMERGENCY PHYSICIAN Student in an Organized Health Care Education/Training Program; FAMILY PHYSICIAN Family Medicine
DX: S91.342A Puncture wound with foreign body, left foot, initial encounter (principal); W45.8XXA Other foreign body or object entering through skin, initial encounter; I10 Essential (primary) hypertension; E03.9 Hypothyroidism, unspecified
CPT/HCPCS: 99283; 28192; 73630

== ENCOUNTER 2025-06-04 20:53 | Emergency (ER) | payer MEDICARE, OTHER, SELFPAY ==
[2025-06-04 21:59] VITALS: BP 165/67
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
[2025-06-04] MEDS: TORADOL 30 MG IM (23:10)
== END 2025-06-04 23:13 | disposition home or self-care (01) ==
LOC: EMR 20:53
PROVIDERS: EMERGENCY PHYSICIAN Emergency Medicine; FAMILY PHYSICIAN Family Medicine
DX: G57.61 Lesion of plantar nerve, right lower limb (principal); M19.071 Primary osteoarthritis, right ankle and foot; M77.31 Calcaneal spur, right foot; I10 Essential (primary) hypertension; E03.9 Hypothyroidism, unspecified; Z86.16 Personal history of COVID-19
CPT/HCPCS: 99284; 96372; 73630